=== PATIENT | male | born 1965 | race Caucasian/White ===

== ENCOUNTER 2018-08-09 07:05 | Emergency (ER) | payer BC ==
[~2018-08-09] VITALS: Ht 182.9 cm; Wt 145.1 kg
[2018-08-09 07:31] VITALS: BP 163/102
[2018-08-09] MEDS ORDERED: KETOROLAC TROMETH 60MG/2ML VIAL IM ONE (07:45)
== END 2018-08-09 08:30 | disposition home or self-care (01) ==
LOC: ER 07:05
DX: M23.91 Unspecified internal derangement of right knee (principal); I10 Essential (primary) hypertension
CPT/HCPCS: 73562; 96372; 99283; J1885